=== PATIENT | female | born 1975 | race Caucasian/White ===

== ENCOUNTER 2018-08-16 13:22 | Emergency (ER) | payer SELFPAY | END 2018-08-16 17:14 | disposition left against medical advice (07) | LOC: E/R 13:22 | DX: Z53.21 Procedure and treatment not carried out due to patient leaving prior to being seen by health care provider (principal) ==

== ENCOUNTER 2018-08-17 21:52 | Emergency (ER) | payer SELFPAY ==
[2018-08-18] MEDS ORDERED: DIVA-48 PO (10:18)
== END 2018-08-17 22:45 | disposition left against medical advice (07) ==
LOC: E/R 21:52
DX: Z53.21 Procedure and treatment not carried out due to patient leaving prior to being seen by health care provider (principal)

== ENCOUNTER 2018-08-18 00:02 | Inpatient (IN) | payer OTHER ==
[2018-08-18] VITALS (11 sets, daily range): BP systolic 112–127; BP diastolic 60–74; PULSE 75–107; RESP 17–19; Ht 162.6 cm; Wt 97.7 kg
[~2018-08-18] VITALS: Ht 162.6 cm; Wt 97.7 kg
[2018-08-18] MEDS ORDERED: SOD CHLORIDE 0.9% 1,000 ML IV STA (00:43)
--- NOTE | 2018-08-18 01:09 | ERD ---
ER Documentation Chief Complaint Chief Complaint C/O LT SIDED CP RADIATING TO BACK W/ SOB ALSO C/O DIZZINESS HPI 43-year-old female who presents to the emergency room complaining of multiple episodes over the last week or 2 of intermittent chest pain and syncope. She describes pressure-like chest pain with episodes of syncope and near syncope. Last one occurred earlier today. She denies any pleuritic pain fevers chills or headache. Patient is extremely tearful and states that she cannot find her boyfriend. She states that they drove here from [place] and she is living out of her vehicle. She denies any recent drugs or alcohol. ROS All systems reviewed and are negative except as per history of present illness. Allergies Allergies: Coded Allergies: ibuprofen (Verified Allergy, Unknown, 08/18/18) FmHx Family History: No diabetes Physical Exam Vitals Vital Signs Date Temp Pulse Resp B/P (MAP) Pulse Ox O2 O2 Flow FiO2 Time Delivery Rate 08/18/18 92 16 120/71 100 Room Air 03:07 (87) 08/18/18 97.3 74 22 131/78 100 00:10 (95) Physical Exam General: Anxious Head: Normocephalic, atraumatic. Eyes: Pupils equally reactive, EOM intact ENT: Moist mucous membranes Neck: Supple, no lymphadenopathy Respiratory: Lungs clear bilaterally, no distress Cardiovascular: RRR, no murmurs, rubs, or gallops Abdominal: Soft, non-tender, non-distended, no peritoneal signs : Deferred MSK: No edema, no unilateral swelling, 5/5 strength Neurologic: Alert and oriented, moving all extremities, normal speech, no focal weakness, no cerebellar signs Skin: No rash Psych: Extremely anxious, tearful Result Diagram: 08/18/1810108/18/18 010 Results 24 hrs Laboratory Tests Test 08/18/18 01:02 08/18/18 01:11 08/18/18 01:15 08/18/18 01:20 White Blood Count 6.7 10^3/ul Red Blood Count 4.88 10^6/ul Hemoglobin 13.3 g/dl Hematocrit 41.2 % Mean Corpuscular 84.4 fl Volume Mean Corpuscular 27.3 pg Hemoglobin Mean Corpuscular 32.3 g/dl Hemoglobin Concen t Red Cell 13.3 % Distribution Width Platelet Count 277 10^3/UL Mean Platelet 10.9 fl Volume Immature 0.100 % Granulocytes % Neutrophils % 45.3 % Lymphocytes % 40.7 % Monocytes % 10.6 % Eosinophils % 3.0 % Basophils % 0.3 % Nucleated Red 0.0 /100WBC Blood Cells % Immature 0.010 10^3/ul Granulocytes # Neutrophils # 3.0 10^3/ul Lymphocytes # 2.7 10^3/ul Monocytes # 0.7 10^3/ul Eosinophils # 0.2 10^3/ul Basophils # 0.0 10^3/ul Nucleated Red 0.0 10^3/ul Blood Cells # Sodium Level 143 mmol/L Potassium Level 3.7 mmol/L Chloride Level 110 mmol/L Carbon Dioxide 27 mmol/L Level Anion Gap 6 Blood Urea 10 mg/dl Nitrogen Creatinine 0.58 mg/dl Est Glomerular > 60 mL/min Filtrat Rate mL/min Glucose Level 94 mg/dl Calcium Level 8.7 mg/dl Troponin I < 0.012 ng/ml Bedside Glucose 92 mg/dL Urine Color YELLOW Urine Clarity CLOUDY Urine pH 6.0 Urine Specific 1.023 [place] Urine Ketones NEGATIVE mg/dL Urine Nitrite NEGATIVE mg/dL Urine Bilirubin NEGATIVE mg/dL Urine 2+ mg/dL Urobilinogen Urine Leukocyte 1+ Herve/ul Esterase Urine Microscopic > 182 /HPF RBC Urine Microscopic 33 /HPF WBC Urine Squamous MODERATE /HPF Epithelial Cells Urine Bacteria FEW /HPF Urine Mucus FEW /HPF Urine Hemoglobin 3+ mg/dL Urine Glucose NEGATIVE mg/dL Urine Total 1+ mg/dl Protein POC Beta HCG, NEGATIVE Qualitative Current Medications Medications Dose Sig/Carolann Start Time Status Last (Trade) Ordered Route PRN Stop Time Admin Dose Reason Admin Sodium 1,000 ml @ Q1H STAT 08/18/18 DC 08/18/18 Chloride 1,000 mls/hr IV 00:43 01:24 08/18/18 01:42 Lorazepam 1 mg ONCE ONCE 08/18/18 DC 08/18/18 (Ativan) IV 01:30 01:24 08/18/18 01:31 Ceftriaxone 50 ml @ ONCE ONCE 08/18/18 Sodium 100 mls/hr IVPB 03:30 08/18/18 03:59 Ondansetron 4 mg ER BRIDGE 08/18/18 HCl (Zofran PRN IV 03:30 Inj) NAUSEA/VOMITI 08/19/18 03:29 NG 650 mg ER BRIDGE 08/18/18 Acetaminophen PRN PO 03:30 (Tylenol .MILD PAIN 08/19/18 03:29 Tab) 1-3 OR TEMP Procedures/MDM EKG, MONITORS, & DIAGNOSTIC IMAGING: EKG: I reviewed and interpreted a 12-lead EKG. Rhythm: Normal sinus rhythm ST Changes: No contiguous ST segment elevations T waves: No contiguous T wave inversions Impression: No evidence of acute cardiac ischemia LAB INTERPRETATION: I reviewed the laboratory testing and it shows no evidence of acute process other than urinary tract infection MEDICAL DECISION MAKING: The patient is extremely tearful. There is certainly some psychosocial issues here. However the patient is describing multiple episodes of chest pain and syncope. Patient exhibits no signs or symptoms concerning for pulmonary embolism despite her chest pain and syncope. This is potentially consistent with anxiety but I believe ACS rule out an arrhythmia rule out would be most appropriate. Given limited resources and limited follow-up inpatient hospitalization would be most appropriate. No signs of dissection or arachnoid hemorrhage. ER COURSE: * Ativan provided * Ceftriaxone provided * Patient to be admitted for further management CONSULTATION: None DISPOSITION PLAN: Telemetry admission for evaluation of syncope Accepting care team and consultations: I discussed the current laboratory data, diagnostic imaging and emergency care provided. Admitting team: Dr. Lawrence Admitting team indication: Insurance directed Departure Diagnosis: Primary Impression: Syncope Syncope type: unspecified Qualified Codes: R55 - Syncope and collapse Additional Impressions: Chest pain Chest pain type: unspecified Qualified Codes: R07.9 - Chest pain, unspecified Urinary tract infection Urinary tract infection type: acute cystitis Hematuria presence: without hematuria Qualified Codes: N30.00 - Acute cystitis without hematuria Condition: LIDIA Lorenzana MD Aug 18, 2018 01:09
[2018-08-18] MEDS ORDERED: LORAZEPAM 2 MG INJ IV ONE (01:30)
[2018-08-18] MEDS ORDERED: NACL 0.9% 3 ML SYG IV SCH (03:30)
[2018-08-18] MEDS ORDERED: BISACODYL (EC) 5 MG TAB PO PRN (03:30)
[2018-08-18] MEDS ORDERED: ONDANSETRON 4 MG INJ IV PRN ×2 (03:30)
[2018-08-18] MEDS ORDERED: DOCUSATE SODIUM 100 MG CAP PO PRN (03:30)
[2018-08-18] MEDS ORDERED: CEFTRIAXONE 1 GM/50 ML (PMX) 50 ML IVPB ONE (03:30)
[2018-08-18] MEDS ORDERED: NITROGLYCERIN (SL) 0.4 MG TAB SL PRN (03:30)
[2018-08-18] MEDS ORDERED: ACETAMINOPHEN 325 MG TAB PO PRN ×2 (03:30)
--- NOTE | 2018-08-18 09:22 | HP ---
Date/Time of Note Date/Time of Note DATE: 08/18/18 TIME: 09:14 Assessment/Plan VTE Prophylaxis Risk score (from Nsg)>0 risk: 3 SCD applied (from Nsg): Yes Pharmacological prophylaxis: NA/contraindicated Pharm contraindication: low risk/ambulating Lines/Catheters IV Catheter Type (from Nrsg): Saline Lock Assessment/Plan Hospital Course SUBJECTIVE: Lying in bed, tearful and complains of right-sided chest pain,dysuria and back/rt flank pain. OBJECTIVE: Vital signs-see below PHYSICAL EXAM: Constitutional: Well-developed, adequately built, no acute distress. Psych: Tearful Head: atraumatic, normocephalic Eyes: nl conjunctiva, nl sclera ENMT: mucosa pink and moist, nl external ears & nose Neck: non-tender, supple Respiratory: clear to auscultation, normal air movement Cardiovascular: nl pulses, regular rate and rhythm Gastrointestinal: non-tender, soft, bowel sounds active in all 4 quadrants. Musculoskeletal/extremities: +Tenderness to Right chest area on touch, +Rt flank area. nl extremities to inspection, motor strength equal bilaterally, no focal deficit. Normal pulses,no cyanosis, no edema. Neurological: Alert oriented 3,nl speech, nl strength Skin: nl turgor ASSESSMENT/PLAN:43 yo homeless female w/psych disorders/depression, seizures,here multiple complaints including /rt sided CP, rt flank/lower back pain/dysuria 1.Right sided chest pain,reproducible,most likely costochondritis - On exam, patient has quite localized and reproducible pain with palpation of chest wall, so most likley this is a musculoskeletal pain in origin. - Troponins and EKG are negative for acute AL and the duration of her syptoms are not consistent with angina or ACS - No need for provocative Stress testing given not consistent with angina - No respiratory symptoms and low wells score to suggest PE - Aspirin held given low pretest probability for cardiac etiology and allergy -cont w/ 2more sets of trops and if negative, patient can be downgraded to medical surgical floor. -In light of allergy to ibuprofen, will give alternative NSAIDs 2. Urinary tract infection -Ceftriaxone and add a urine culture to the specimen drawn from ER. 3. Drug abuse -Obtain urine toxicology. Patient admits to meth use. 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 4. Psychiatric disorder/depressive disorder -Inpatient psych consult -We will try to obtain home medication and will continue accordingly. 5. Seizure disorders -on Depakote as outpt, will resume it. -Currently stable. -seizure precautions 6. Obesity with a BMI 37.0 -Weight reduction advised. We will also obtain a lipid panel and A1c. 7.Homelessness -SW DVT prophylaxis: SCDs PUD prophylaxis: Not indicated CODE STATUS: Full code Diet: Regular diet. Rest of the management depend on hospital course. Approximately 60 m spent on this history and physical. Patient was seen in collaboration with Dr. Vivas Result Diagram: 08/18/1810108/18/18101 Results 24hrs Laboratory Tests Test 08/18/18 01:02 08/18/18 01:11 08/18/18 01:15 08/18/18 01:20 White Blood Count 6.7 Red Blood Count 4.88 Hemoglobin 13.3 Hematocrit 41.2 Mean Corpuscular 84.4 Volume Mean Corpuscular 27.3 L Hemoglobin Mean Corpuscular 32.3 Hemoglobin Concent Red Cell 13.3 Distribution Width Platelet Count 277 Mean Platelet Volume 10.9 H Immature 0.100 Granulocytes % Neutrophils % 45.3 Lymphocytes % 40.7 Monocytes % 10.6 Eosinophils % 3.0 Basophils % 0.3 Nucleated Red Blood 0.0 Cells % Immature 0.010 Granulocytes # Neutrophils # 3.0 Lymphocytes # 2.7 Monocytes # 0.7 Eosinophils # 0.2 Basophils # 0.0 Nucleated Red Blood 0.0 Cells # Sodium Level 143 Potassium Level 3.7 Chloride Level 110 Carbon Dioxide Level 27 Anion Gap 6 Blood Urea Nitrogen 10 Creatinine 0.58 Est Glomerular > 60 Filtrat Rate mL/min Glucose Level 94 Calcium Level 8.7 Troponin I < 0.012 Bedside Glucose 92 Urine Color YELLOW Urine Clarity CLOUDY A Urine pH 6.0 Urine Specific 1.023 [place] Urine Ketones NEGATIVE Urine Nitrite NEGATIVE Urine Bilirubin NEGATIVE Urine Urobilinogen 2+ H Urine Leukocyte 1+ H Esterase Urine Microscopic > 182 H RBC Urine Microscopic 33 H WBC Urine Squamous MODERATE Epithelial Cells Urine Bacteria FEW A Urine Mucus FEW A Urine Hemoglobin 3+ H Urine Glucose NEGATIVE Urine Total Protein 1+ H POC Beta HCG, NEGATIVE Qualitative HPI/ROS Admit Date/Time Admit Date/Time Aug 18, 2018 at 03:17 Hx of Present Illness This is a 43-year-old female who is also homeless with history of depressive disorders, seizure disorders who is also supposed to be on Depakote, presented to the emergency room with multiple complaints including 5-day duration of right-sided chest pain and lower back pain. Also reports dizziness. Patient's chest pain gets worsened by touching the area. She also reported mild dysuria. Patient is very tearful and she also reported to me that she got angry yesterday because of the chest pain and took "crystal meth". She also admits to daily smoking. Patient denied palpitation, shortness of breath, nausea, vomiting, abdominal pain, loss of consciousness, numbness, tingling, fever, chills, diarrhea, once the patient, abdominal pain or other constitutional symptoms. Upon presentation, initial labs grossly unremarkable. Urine analysis was strongly suggestive of UTI. Chest x-ray with no evidence of pneumonia. Vital signs stable. In ER, patient appears to be very anxious and was given a dose of IV Ativan. She was also given a dose of ceftriaxone. Patient was then admitted for further evaluation. ROS A 12 point review of system was assessed and is negative other than what is mentioned in the HPI. PMH/Family/Social Past Medical History See HPI Medications Current Medications Ondansetron HCl (Zofran Inj) 4 mg ER BRIDGE PRN IV NAUSEA/VOMITING; Start 08/18/18 at 03:30; Stop 08/19/18 at 03:29 Acetaminophen (Tylenol Tab) 650 mg ER BRIDGE PRN PO .MILD PAIN 1-3 OR TEMP; Start 08/18/18 at 03:30; Stop 08/19/18 at 03:29 IV Flush (NS 3 ml) 3 ml PER PROTOCOL IV ; Start 08/18/18 at 03:30 Ondansetron HCl (Zofran Inj) 4 mg Q6H PRN IV NAUSEA/VOMITING; Start 08/18/18 at 03:30 Nitroglycerin (Nitroglycerin (Sl Tab) 0.4 Mg) 1 tab Q5M PRN SL .CHEST PAIN; Start 08/18/18 at 03:30 Acetaminophen (Tylenol Tab) 650 mg Q6H PRN PO .PAIN 1-3 OR TEMP; Start 08/18/18 at 03:30 Docusate Sodium (Colace) 100 mg Q12H PRN PO .CONSTIPATION; Start 08/18/18 at 03:30 Bisacodyl (Dulcolax) 5 mg DAILY PRN PO .CONSTIPATION; Start 08/18/18 at 03:30 Coded Allergies: ibuprofen (Verified Allergy, Unknown, 08/18/18) Past Surgical History Social History Positive for meth abuse, tobacco use. Denied alcohol use. Smoking Status: Current every day smoker Exam/Review of Systems Vital Signs Vitals Vital Signs Date Temp Pulse Resp B/P (MAP) Pulse Ox O2 O2 Flow FiO2 Time Delivery Rate 08/18/18 89 08:00 08/18/18 98.4 18 127/73 97 07:32 (91) 08/18/18 Room Air 05:48 EDEN BARBOZA NP Aug 18, 2018 09:22
[2018-08-18] MEDS ORDERED: SOD CHLORIDE 0.9% 500 ML IV ONE (09:30)
[2018-08-18] MEDS ORDERED: DIVA-48 PO (10:18)
[2018-08-18] MEDS: DIVALPROEX (EC) 500 MG TAB PO SCH ×2 (11:01→20:30)
[2018-08-18] MEDS: HYDROCODONE/APAP (5/325) TAB PO PRN ×2 (11:02→19:10)
--- NOTE | 2018-08-18 11:14 | QN ---
Documentation Comment Patient refused psych consult. Provider notified ROSALINE BULLARD NP Aug 18, 2018 11:14
--- NOTE | 2018-08-18 19:50 | RADRPT ---
Echocardiogram Report Patient Name: Loida LESLIE ID: [id number] : 1975 (43y 2m)Study Date: 08/18/2018 7:30:50 AM Gender: FAccession #: [id number] Tech: Saud Martinez [facility] Location: [facility] Ref.Physician: LEONA BENTON Height(Cm): BSA: Weight(Kg): Quality: AdequateAccount #: Procedures: Echocardiographic Report: Transthoracic echocardiogram with complete 2D, M-Mode, and doppler examination. Indications: Chest Pain. Measurements: 2D/M Mode Doppler Measurement Value Normal Range Measurement Value Normal Range LVIDd 2D 4.1 [ 3.8 - 5.2 ] cm AV Peak Giacomo 1.6 [ 100.0 - 170.0 ] cm/sec LVIDs 2D 1.9 [ 2.2 - 3.5 ] cm AV Peak PG 10.0 [ 2.0 - 9.0 ] mmHg LVPWd 2D 1.0 [ 0.6 - 0.9 ] cm LVOT Peak Giacomo 1.3 [ 70.0 - 110.0 ] cm/sec IVSd 2D 1.1 [ 0.6 - 0.9 ] cm LVOT Peak PG 7.0 [ 2.0 - 6.0 ] mmHg AoR Diam 2D 2.3 [ 2.3 - 3.1 ] cm MV E Peak Giacomo 0.9 [ 60.0 - 130.0 ] cm/sec EDV 2D 74.7 [ 46.0 - 106.0 ] ml MV A Peak Giacomo 0.8 [ 100.0 - 120.0 ] cm/sec ESV 2D 10.4 [ 14.0 - 42.0 ] ml MV E/A 1.2 [ 0.8 - 1.5 ] ratio EF 2D 86.1 [ 54.0 - 74.0 ] percent MV Decel Time 190 [ 104 - 258 ] msec LA Dimen 2D 3.2 [ 2.7 - 3.8 ] cm Lat E` Giacomo 0.1 [ 10.0 - 15.0 ] cm/sec Lateral E/E` 8.8 [ 1.0 - 2.0 ] ratio Med E` Giacomo 0.1 cm/sec MV E/A 1.2 [ 0.8 - 1.5 ] ratio TR Peak Giacomo 2.7 [ 100.0 - 280.0 ] cm/sec TR Peak PG 29.0 mmHg RVSP 37.0 [ 10.0 - 36.0 ] mmHg RA Pressure 8.0 mmHg Findings: Left Ventricle: Normal left ventricular systolic function. Normal left ventricular cavity size. Mild concentric left ventricular hypertrophy. Ejection fraction is visually estimated at 55 %. Tissue Doppler/Mitral Doppler indices are consistent with pseudonormalization with mildly elevated left atrial pressure (Stage II diastolic dysfunction). Right Ventricle: Normal right ventricular size. Normal right ventricular systolic function. Left Atrium: The left atrium is normal in size. Right Atrium: The right atrium is normal in size. Mitral Valve: Normal appearance and function of the mitral valve with trace physiologic regurgitation. Aortic Valve: Normal appearance of the aortic valve. No significant aortic stenosis or insufficiency. Tricuspid Valve: Normal appearance of the tricuspid valve. Estimated peak PA systolic pressure 37 mmHg. There is mild tricuspid regurgitation. Pulmonic Valve: Pulmonic valve not well visualized. Pericardium: Normal pericardium with no significant pericardial effusion. Aorta: Normal aortic root. IVC: Normal size and no respiratory collapse consistent with elevated right atrial pressure. Conclusions: Normal left ventricular systolic function. Normal left ventricular cavity size. Mild concentric left ventricular hypertrophy. Ejection fraction is visually estimated at 55 %. Tissue Doppler/Mitral Doppler indices are consistent with pseudonormalization with mildly elevated left atrial pressure (Stage II diastolic dysfunction). Normal appearance and function of the mitral valve with trace physiologic regurgitation. Normal appearance of the tricuspid valve. Estimated peak PA systolic pressure 37 mmHg. There is mild tricuspid regurgitation. Electronically Signed By: Neal Loya 2018-08-18 19:49:19 PDT
[2018-08-19] VITALS (12 sets, daily range): BP systolic 110–125; BP diastolic 56–80; PULSE 70–98; RESP 17–20
[2018-08-19] MEDS: CEFTRIAXONE 1 GM/50 ML (PMX) 50 ML IVPB SCH (03:23)
[2018-08-19] MEDS ORDERED: CEFTRIAXONE 1 GM/50 ML (PMX) 50 ML IVPB ONE (03:30)
[2018-08-19] MEDS: DIVALPROEX (EC) 500 MG TAB PO SCH ×2 (09:24→21:55)
--- NOTE | 2018-08-19 13:29 | PN ---
Date/Time of Note Date/Time of Note DATE: 08/19/18 TIME: 13:26 Assessment/Plan VTE Prophylaxis Risk score (from Ns)>0 risk: 2 SCD applied (from Ns): Yes Pharmacological prophylaxis: heparin Lines/Catheters IV C[facility]ter Type [facility]from [facility] Saline Lock Assessment/Plan Problems: (1) Syncope Status: Acute Comment: Workup for the syncope has fortunately been nonrevealing. Continue observation on telemetry for the moment Qualifiers: Syncope type: unspecified Qualified Codes: R55 - Syncope and collapse (2) Grade II diastolic dysfunction Status: Chronic Comment: Noted. Attempt to get better blood pressure control and especially use of beta-blockade (3) Methamphetamine abuse Status: Chronic Comment: Patient has been counseled about the usage of the methamphetamine which is not helping her medical issues (4) Depressive disorder Status: Chronic Comment: Noted. The patient declines psychiatric consultation again (5) Chest pain Status: Acute Comment: This is noncardiac chest wall pain. We will go ahead and use nonsteroidals Qualifiers: Chest pain type: unspecified Qualified Codes: R07.9 - Chest pain, unsp ecified (6) Seizure disorder Status: Chronic Comment: Maintain anti-epilepsy medications although the crystal meth will not help this (7) Urinary tract infection Status: Acute Comment: On antibiotics pending sensitivities Qualifiers: Urinary tract infection type: acute cystitis Hematuria presence: without hematuria Qualified Codes: N30.00 - Acute cystitis without hematuria Result Diagram: 08/19/18 1049 08/19/18 1049 Results 24hrs Laboratory Tests Test 08/18/18 13:58 08/18/18 14:11 08/18/18 19:59 08/19/18 10:49 Hemoglobin A1c 4.8 Creatine Kinase 69 52 Creatine Kinase 2.5 2.3 Index Creatinine Kinase MB 1.70 1.18 (Mass) Troponin I < 0.012 < 0.012 Triglycerides Level 91 Cholesterol Level 130 LDL Cholesterol, 70 Calculated HDL Cholesterol 42 Cholesterol/HDL 3.0 Ratio Urine Opiates Screen Negative Urine Barbiturates Negative Urine Amphetamines POSITIVE Screen Urine Negative Benzodiazepines Screen Urine Cocaine Screen Negative Urine Cannabinoids Negative White Blood Count 6.3 Red Blood Count 5.29 Hemoglobin 14.5 Hematocrit 44.2 Mean Corpuscular 83.6 Volume Mean Corpuscular 27.4 L Hemoglobin Mean Corpuscular 32.8 Hemoglobin Concent Red Cell 13.5 Distribution Width Platelet Count 239 Mean Platelet Volume 11.9 H Immature 0.300 Granulocytes % Neutrophils % Segmented 59 Neutrophils % (Manual) Band Neutrophils % 1 (Manual) Lymphocytes % Lymphocytes % 27 (Manual) Reactive Lymphocytes 5 H % (Manual) Monocytes % Monocytes % (Manual) 5 Eosinophils % Eosinophils % 3 (Manual) Basophils % Nucleated Red Blood 0.0 Cells % Immature 0.020 Granulocytes # Neutrophils # Neutrophils # 3.7 (Manual) Band Neutrophils # 0.0 Lymphocytes (Manual) 1.7 Lymphocytes # Reactive Lymphocytes 0.3 H # Monocytes # Monocytes # (Manual) 0.3 Eosinophils # Basophils # Nucleated Red Blood Cells # Platelet Estimate NORMAL Sodium Level 141 Potassium Level 4.5 Chloride Level 108 Carbon Dioxide Level 25 Anion Gap 8 Blood Urea Nitrogen 11 Creatinine 0.61 Est Glomerular > 60 Filtrat Rate mL/min Glucose Level 84 Calcium Level 8.8 Total Bilirubin 0.2 Direct Bilirubin 0.00 Indirect Bilirubin 0.2 Aspartate Amino 30 Transf (AST/SGOT) Alanine 23 Aminotransferase (AL T/SGPT) Alkaline Phosphatase 67 Total Protein 6.5 Albumin 3.2 L Globulin 3.30 H Albumin/Globulin 0.96 Ratio Subjective 24 Hr Interval Summary Free Text/Dictation Patient complains that she is having chest wall pain especially at the costo sternal junction on the right and also left arm. She reports that she is disturbed by having neighbors as is keeping her from getting a nap. Constitutional: no complaints Respiratory: no complaints Cardiovascular: chest pain (Chest wall pain) Gastrointestinal: no complaints Genitourinary: no complaints Musculoskeletal: other Exam/Review of Systems Exam Vitals Vital Signs Date Temp Pulse Resp B/P (MAP) Pulse Ox O2 O2 Flow FiO2 Time Delivery Rate 08/19/18 72 12:17 08/19/18 98.1 20 121/80 99 Room Air 12:09 (94) Intake and Output 08/18/18 08/18/18 08/19/18 1515:00 23:00 07:00 IntakeIntake Total 800 ml 350 ml OutputOutput Total 600 ml BalanceBalance 200 ml 350 ml Constitutional: alert, oriented Psych: depression Neck: supple, non-tender Respiratory: clear to auscultation, normal air movement Cardiovascular: regular rate and rhythm, nl pulses, other (Reproducible chest wall pain at the right 6 costosternal junction) Gastrointestinal: soft, nl liver, spleen, non-tender Results Results 24hrs Laboratory Tests Test 08/18/18 13:58 08/18/18 14:11 08/18/18 19:59 08/19/18 10:49 Hemoglobin A1c 4.8 Creatine Kinase 69 52 Creatine Kinase 2.5 2.3 Index Creatinine Kinase MB 1.70 1.18 (Mass) Troponin I < 0.012 < 0.012 Triglycerides Level 91 Cholesterol Level 130 LDL Cholesterol, 70 Calculated HDL Cholesterol 42 Cholesterol/HDL 3.0 Ratio Urine Opiates Screen Negative Urine Barbiturates Negative Urine Amphetamines POSITIVE Screen Urine Negative Benzodiazepines Screen Urine Cocaine Screen Negative Urine Cannabinoids Negative White Blood Count 6.3 Red Blood Count 5.29 Hemoglobin 14.5 Hematocrit 44.2 Mean Corpuscular 83.6 Volume Mean Corpuscular 27.4 L Hemoglobin Mean Corpuscular 32.8 Hemoglobin Concent Red Cell 13.5 Distribution Width Platelet Count 239 Mean Platelet Volume 11.9 H Immature 0.300 Granulocytes % Neutrophils % Segmented 59 Neutrophils % (Manual) Band Neutrophils % 1 (Manual) Lymphocytes % Lymphocytes % 27 (Manual) Reactive Lymphocytes 5 H % (Manual) Monocytes % Monocytes % (Manual) 5 Eosinophils % Eosinophils % 3 (Manual) Basophils % Nucleated Red Blood 0.0 Cells % Immature 0.020 Granulocytes # Neutrophils # Neutrophils # 3.7 (Manual) Band Neutrophils # 0.0 Lymphocytes (Manual) 1.7 Lymphocytes # Reactive Lymphocytes 0.3 H # Monocytes # Monocytes # (Manual) 0.3 Eosinophils # Basophils # Nucleated Red Blood Cells # Platelet Estimate NORMAL Sodium Level 141 Potassium Level 4.5 Chloride Level 108 Carbon Dioxide Level 25 Anion Gap 8 Blood Urea Nitrogen 11 Creatinine 0.61 Est Glomerular > 60 Filtrat Rate mL/min Glucose Level 84 Calcium Level 8.8 Total Bilirubin 0.2 Direct Bilirubin 0.00 Indirect Bilirubin 0.2 Aspartate Amino 30 Transf (AST/SGOT) Alanine 23 Aminotransferase (AL T/SGPT) Alkaline Phosphatase 67 Total Protein 6.5 Albumin 3.2 L Globulin 3.30 H Albumin/Globulin 0.96 Ratio Medications Medication Current Medications IV Flush (NS 3 ml) 3 ml PER PROTOCOL IV ; Start 08/18/18 at 03:30 Ondansetron HCl (Zofran Inj) 4 mg Q6H PRN IV NAUSEA/VOMITING; Start 08/18/18 at 03:30 Nitroglycerin (Nitroglycerin (Sl Tab) 0.4 Mg) 1 tab Q5M PRN SL .CHEST PAIN; Start 08/18/18 at 03:30 Acetaminophen (Tylenol Tab) 650 mg Q6H PRN PO .PAIN 1-3 OR TEMP; Start 08/18/18 at 03:30 Docusate Sodium (Colace) 100 mg Q12H PRN PO .CONSTIPATION; Start 08/18/18 at 03:30 Bisacodyl (Dulcolax) 5 mg DAILY PRN PO .CONSTIPATION; Start 08/18/18 at 03:30 Ceftriaxone Sodium 50 ml @ 100 mls/hr Q24H IVPB Last administered on 08/19/18at 03:23; Admin Dose 100 MLS/HR; Start 08/19/18 at 03:00 Acetaminophen/ Hydrocodone Bitart ([place] (5/325)) 1 tab Q4H PRN PO MODERATE PAIN LEVEL 4-6 Last administered on 08/18/18at 19:10; Admin Dose 1 TAB; Start 08/18/18 at 09:30 Divalproex Sodium (Depakote) 500 mg BID PO Last administered on 08/19/18at 09:24; Admin Dose 500 MG; Start 08/18/18 at 10:30 ADDIS SHEETS MD Aug 19, 2018 13:29
[2018-08-19] MEDS: CELECOXIB 100 MG CAP PO SCH ×2 (14:58→21:55)
[2018-08-20] VITALS (12 sets, daily range): BP systolic 110–150; BP diastolic 57–95; PULSE 66–118; RESP 18–20
[2018-08-20] MEDS: CEFTRIAXONE 1 GM/50 ML (PMX) 50 ML IVPB SCH (02:16)
[2018-08-20] MEDS: DIVALPROEX (EC) 500 MG TAB PO SCH ×2 (09:05→20:46)
[2018-08-20] MEDS: CELECOXIB 100 MG CAP PO SCH ×2 (09:05→20:46)
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
[2018-08-20] MEDS ORDERED: AZITHROMYCIN 250 MG TAB PO ONE (12:00)
[2018-08-20] MEDS ORDERED: ONDANSETRON 4 MG TAB PO PRN (12:00)
[2018-08-20] MEDS ORDERED: FOSFOMYCIN 3 GM PACKET PO ONE (12:00)
[2018-08-20] MEDS: HYDROCODONE/APAP (5/325) TAB PO PRN (17:06)
[2018-08-20] MEDS ORDERED: PHENOL 1.4% SOLN 180 ML BTL MT PRN (19:30)
[2018-08-21 01:34] VITALS: BP 107/59; PULSE 77; RESP 18
[2018-08-21 07:31] VITALS: BP 126/76; PULSE 96; RESP 16
--- NOTE | 2018-08-21 08:50 | PDOCDIS ---
Discharge Instructions CONDITION [id number] Patient Condition: [id number] Stable HOME CARE INSTRUCTIONS: [id number] Diet Instructions: [id number] Regular FOLLOW UP/APPOINTMENTS Follow-up Plan Follow-up with your primary care physician in 1 week. You have been counseled on cessation of substance abuse. EDEN BARBOZA NP Aug 21, 2018 08:50
[2018-08-21] MEDS ORDERED: CELE100C PO (08:51)
--- NOTE | 2018-08-21 08:56 | DS ---
Date/Time of Note Date/Time of Note DATE: 08/21/18 TIME: 08:54 Discharge Summary Admission/Discharge Info Admit Date/Time Aug 18, 2018 at 09:04 Discharge Date/Time Discharge Diagnosis 1.Right sided chest pain,reproducible,most likely costochondritis. Stable 2. Status post urinary tract infection 3. Meth abuse 4. Psychiatric disorder/depressive disorder 5. Seizure disorders 6. Obesity with a BMI 37.0 7.Homelessness 8. Diastolic dysfunction Patient Condition: Stable Procedures 08/18/2018. 2D echocardiogram. Conclusions: Normal left ventricular systolic function. Normal left ventricular cavity size. Mild concentric left ventricular hypertrophy. Ejection fraction is visually estimated at 55 %. Tissue Doppler/Mitral Doppler indices are consistent with pseudonormalization with mildly elevated left atrial pressure (Stage II diastolic dysfunction). Normal appearance and function of the mitral valve with trace physiologic regurgitation. Normal appearance of the tricuspid valve. Estimated peak PA systolic pressure 37 mmHg. There is mild tricuspid regurgitation. Electronically Signed By: Neal Loya 2018-08-18 19:49:19 PDT Hx of Present Illness This is a 43-year-old female who is also homeless with history of depressive disorders, seizure disorders who is also supposed to be on Depakote, presented to the emergency room with multiple complaints including 5-day duration of right-sided chest pain and lower back pain. Also reports dizziness. Patient's chest pain gets worsened by touching the area. She also reported mild dysuria. Patient is very tearful and she also reported to me that she got angry yesterday because of the chest pain and took "crystal meth". She also admits to daily smoking. Patient denied palpitation, shortness of breath, nausea, vomiting, abdominal pain, loss of consciousness, numbness, tingling, fever, chills, diarrhea, once the patient, abdominal pain or other constitutional symptoms. Upon presentation, initial labs grossly unremarkable. Urine analysis was strongly suggestive of UTI. Chest x-ray with no evidence of pneumonia. Vital signs stable. In ER, patient appears to be very anxious and was given a dose of IV Ativan. She was also given a dose of ceftriaxone. Patient was then admitted for further evaluation. Hospital Course 43 yo homeless female w/psych disorders/depression, abuse seizures,here multiple complaints including /rt sided CP, rt flank/lower back pain/dysuria. On exam, patient has quite localized and reproducible pain with palpation of chest wall, so most likley this is a musculoskeletal pain in origin.Troponins and EKG are negative for acute SD and the duration of her syptoms are not consistent with angina or ACS. No need for provocative Stress testing given not consistent with angina. No respiratory symptoms and low wells score to suggest PE. Aspirin held given low pretest probability for cardiac etiology and allergy. Echo with stage II diastolic dysfunction with preserved ejection fraction. No valvular disorders. Patient was treated with celecoxib for musculoskeletal pain with improvement in her symptoms. She was also counseled on cessation of meth abuse and had social work faculty member follow-up. She refused homelessness resources. The patient was also treated for urinary tract infection with complete resolution of her symptoms. At this time, no further inpatient workup indicated and patient is medically stable for discharge. we also try to obtain official psych eval as patient appeared to be tearful with multiple complaints throughout the hospitalization. She refused any suicidal thoughts. However, patient refused psych evaluation as such it was not done. Approximately 60 minutes was spent on coordinating the discharge on this patient. Patient was seen in collaboration with Dr. Mercado. Home Meds Active Scripts Celecoxib* (Celebrex*) 100 Mg Capsule, 100 MG PO BID, #30 CAP Prov:EDEN BARBOZA NP 08/21/18 Reported Medications Divalproex Sodium* (Depakote*) 500 Mg Tablet.dr 500 MG PO BID, #120 TAB 08/18/18 Follow-up Plan Follow-up with your primary care physician in 1 week. You have been counseled on cessation of substance abuse. Primary Care Provider Care Physician No Primary EDEN BARBOZA NP Aug 21, 2018 08:56
[2018-08-21] MEDS: DIVALPROEX (EC) 500 MG TAB PO SCH (09:00)
[2018-08-21] MEDS: CELECOXIB 100 MG CAP PO SCH (09:00)
== END 2018-08-21 10:25 | disposition home or self-care (01) | DRG 206 ==
LOC: E/R 00:02 → 6WM 03:17 → OBSVTOIN 09:04 → 2NE 08-20 23:17
PROVIDERS: ADMIT Family Medicine; ATTEND Family Medicine
DX: M94.0 Chondrocostal junction syndrome [Tietze] (principal); N39.0 Urinary tract infection, site not specified; I50.30 Unspecified diastolic (congestive) heart failure; N30.00 Acute cystitis without hematuria; R55 Syncope and collapse; B96.89 Other specified bacterial agents as the cause of diseases classified elsewhere; G40.909 Epilepsy, unspecified, not intractable, without status epilepticus; E66.9 Obesity, unspecified; Z68.37 Body mass index [BMI] 37.0-37.9, adult; Z59.0 Homelessness; F15.10 Other stimulant abuse, uncomplicated; F32.9 Major depressive disorder, single episode, unspecified
CPT/HCPCS: 36415; 71045; 80048; 80053; 80061; 80307; 81001; 81025; 82550; 82553; 82962; 83036; 84484; 85025; 87086; 93005; 93306; 93880; 96374; 97161; G0378; J0696; J2060; J7030; J7040

== ENCOUNTER → 2018-10-02 20:40 | Emergency (ER) | payer SELFPAY ==
[~2018-10-02 20:40] MED LIST: CELE100C PO; DIVA-48 PO
== END | disposition left against medical advice (07) ==
LOC: FTE 20:40
DX: Z53.21 Procedure and treatment not carried out due to patient leaving prior to being seen by health care provider (principal)

== ENCOUNTER 2018-10-10 11:35 | Emergency (ER) | payer OTHER ==
[~2018-10-10] VITALS: Wt 90.0 kg
[2018-10-10 11:40] VITALS: BP 149/72; PULSE 98; RESP 18
[2018-10-10] MEDS ORDERED: ALBUTEROL 0.083% (NEB) 2.5 MG/3 ML AMP HHN STA (12:38)
[2018-10-10] MEDS ORDERED: predniSONE 20 MG TAB PO ONE (13:30)
[2018-10-10] MEDS ORDERED: CEPHALEXIN 500 MG CAP PO ONE (13:30)
[2018-10-10] MEDS ORDERED: PHEN118L PO (13:33)
[2018-10-10] MEDS ORDERED: ALBU18HF INHALATION (13:33)
[2018-10-10] MEDS ORDERED: CEPH-443 PO (13:33)
[2018-10-10] MEDS ORDERED: PRED20TA PO (13:33)
--- NOTE | 2018-10-10 13:36 | ERD ---
ER Documentation Chief Complaint Chief Complaint FLU X 2 WEEKS,BODY ACHES, COUGH,CHILLS HPI 43-year-old female presents with cough for last 2 days. She also has body aches. She has hematuria as well. Patient has a history of recent admission for complications related to methamphetamine use, UTI, syncope. Has a history of asthma but denies use of an inhaler currently. ROS All systems reviewed and are negative except as per history of present illness. Medications Home Meds Active Scripts Albuterol Sulfate* (Ventolin HFA*) 18 Gm Hfa.aer.ad, 2 PUFF INHALATION Q4H, #1 INHALER Prov:MARIA EELNA CALVERT MD 10/10/18 Cephalexin* (Keflex*) 500 Mg Capsule, 500 MG PO QID for 5 Days, CAP Prov:MARIA ELENA CALVERT MD 10/10/18 Prednisone* (Prednisone*) 20 Mg Tab, 40 MG PO DAILY for 4 Days, TAB Start October 11, 2018 Prov:MARIA ELENA CALVERT MD 10/10/18 Phenylephrine/Diphenhydramine (DIMETAPP COLD & CONGEST LIQUID) 118 Ml Liquid, 10 ML PO Q4H PRN for COUGH, #4 OZ Prov:MARIA ELENA CALVERT MD 10/10/18 Celecoxib* (Celebrex*) 100 Mg Capsule, 100 MG PO BID, #30 CAP Prov:EDEN BARBOZA NP 08/21/18 Reported Medications Divalproex Sodium* (Depakote*) 500 Mg Tablet.dr, 500 MG PO BID, #120 TAB 08/18/18 Allergies Allergies: Coded Allergies: ibuprofen (Verified Allergy, Unknown, 08/18/18) PMhx/Soc Hx Psychiatric Problems: Yes (DEPRESSION,ANXIETY) Hx Miscellaneous Medical Probl: Yes (DEPRESSIVE DISORDER, SEIZURE DISORDER , CHEST PAIN , LBP , DIZZINESS ) Hx Alcohol Use: No Hx Substance Use: Yes (METH) Hx Tobacco Use: Yes FmHx Family History: No diabetes, No coronary disease, No other Physical Exam Vitals Vital Signs Date Temp Pulse Resp B/P (MAP) Pulse Ox O2 O2 Flow FiO2 Time Delivery Rate 10/10/18 89 18 96 21 13:00 10/10/18 97.1 98 18 149/72 99 11:40 (97) Physical Exam Const: No acute distress. Anxious. Head: Atraumatic Eyes: Normal Conjunctiva ENT: Normal External Ears, Nose and Mouth. Neck: Full range of motion. No meningismus. Resp: Clear to auscultation bilaterally Cardio: Regular rate and rhythm, no murmurs Abd: Soft, suprapubic tenderness. No tenderness McBurney's point no Peña sign., non distended. Normal bowel sounds Skin: No petechiae or rashes Back: No midline or flank tenderness Ext: No cyanosis, or edema Neur: Awake and alert Psych: Normal Mood and Affect Results 24 hrs Laboratory Tests Test 10/10/18 12:49 10/10/18 12:50 POC Beta HCG, Qualitative NEGATIVE Urine Color RED Urine Clarity CLOUDY Urine pH 6.0 Urine Specific Wenham 1.019 Urine Ketones NEGATIVE mg/dL Urine Nitrite POSITIVE mg/dL Urine Bilirubin NEGATIVE mg/dL Urine Urobilinogen NEGATIVE mg/dL Urine Leukocyte Esterase 2+ Herve/ul Urine Microscopic RBC 26 /HPF Urine Microscopic WBC 99 /HPF Urine Squamous Epithelial Cells MANY /HPF Urine Bacteria FEW /HPF Urine Mucus FEW /HPF Urine Hemoglobin 3+ mg/dL Urine Glucose NEGATIVE mg/dL Urine Total Protein 2+ mg/dl Current Medications Medications Dose Sig/Carolann Start Time Status Last (Trade) Ordered Route PRN Stop Time Admin Dose Reason Admin Albuterol 5 mg ONCE STAT 10/10/18 DC 10/10/18 (Proventil HHN 12:38 12:59 0.083% (Neb)) 10/10/18 12:40 Cephalexin 500 mg ONCE ONCE 10/10/18 DC (Keflex) PO 13:30 10/10/18 13:31 Prednisone 60 mg ONCE ONCE 10/10/18 DC (Prednisone) PO 13:30 10/10/18 13:31 Procedures/MDM Patient presents with hematuria possible vaginal bleeding. hCG negative. She is uncertain of which. She also has cough and body aches for the last few days. She is a difficult historian but has no abnormalities on vital signs. She does not meet SIRS criteria. She has no measured fevers. She was given albuterol treatment, prednisone 60 mg by mouth. Urine shows red blood cells, white blood cells, leukocyte esterase and nitrites. Patient was given Keflex 500 mg by mouth. Patient states that she has had vaginal bleeding for last 2 weeks although it may be hematuria. CBC and basic metabolic panel ordered but patient refused blood draw. Patient was sleeping comfortably after observation treatment without signs of hypoxemia, respiratory distress. She had residual coarse breath sounds. Patient will be treated with a short course of prednisone, Ventolin, Keflex for UTI, recommendations for primary care follow-up and return precautions. Patient is is no signs or symptoms of acute abdomen. She has no signs of pallor to suggest anemia the patient is advised to recheck for any worsening symptoms with primary doctor. Departure Diagnosis: Primary Impression: UTI (urinary tract infection) Urinary tract infection type: site unspecified Hematuria presence: without hematuria Qualified Codes: N39.0 - Urinary tract infection, site not specified Additional Impression: Upper respiratory infection URI type: unspecified URI Qualified Codes: J06.9 - Acute upper respiratory infection, unspecified Condition: Stable Patient Instructions: Understanding Urinary Tract Infections (UTIs), Bronchitis With Wheezing (Adult) Additional Instructions: There is signs of urinary tract infection and we will treat for this. Likely upper respiratory infection as well. Recheck for any worsening symptoms with primary care doctor. MARIA ELENA CALVERT MD October 10, 2018 13:36
== END 2018-10-10 14:40 | disposition home or self-care (01) ==
LOC: FTE 11:35
DX: N39.0 Urinary tract infection, site not specified (principal); J45.909 Unspecified asthma, uncomplicated; J06.9 Acute upper respiratory infection, unspecified; Z87.891 Personal history of nicotine dependence
CPT/HCPCS: 81001; 81025; 94664; J7512; Z7502; Z7610

== ENCOUNTER 2018-10-23 23:17 | Emergency (ER) | payer SELFPAY ==
[~2018-10-23] VITALS: Wt 97.3 kg
[~2018-10-23 23:17] MED LIST changes: +ALBU18HF INHALATION; +CEPH-443 PO; +PHEN118L PO; +PRED20TA PO
[2018-10-23 23:22] VITALS: BP 141/61; PULSE 94; RESP 18
== END 2018-10-24 00:25 | disposition left against medical advice (07) ==
LOC: FTE 23:17
DX: Z53.21 Procedure and treatment not carried out due to patient leaving prior to being seen by health care provider (principal)

== ENCOUNTER 2018-11-05 05:55 | Emergency (ER) | payer OTHER ==
[~2018-11-05] VITALS: Ht 165.1 cm; Wt 99.2 kg
[2018-11-05 05:57] VITALS: BP 143/80; PULSE 114; RESP 18; Ht 165.1 cm; Wt 99.2 kg
[2018-11-05] MEDS ORDERED: ACETAMINOPHEN 500 MG TAB PO STA (06:16)
[2018-11-05] MEDS ORDERED: ACET500C5 PO (06:18)
[2018-11-05] MEDS ORDERED: SULF1TAB31 PO (06:18)
[2018-11-05] MEDS ORDERED: CEPH-443 PO (06:18)
--- NOTE | 2018-11-05 06:23 | ERD ---
ER Documentation Chief Complaint Chief Complaint BUG BITE ON R CALF X'S 2 DAYS HPI This is a 43-year-old female with a history of asthma and epilepsy who presents to ED with complaints of bug bite on right calf x2 days. Patient states that she felt a bug bite her on her right calf yesterday and she started itching it. Patient states that after itching repetitivly redness, pain and warmth around this area. Denies fevers, chills, chest pain, shortness of breath, trouble breathing. History of using methamphetamine but states that she quit. Denies history of DVT and PE. ROS All systems reviewed and are negative except as per history of present illness. Medications Home Meds Active Scripts Sulfamethoxazole/Trimethoprim* (Bactrim Ds* Tablet) 1 Each Tablet, 1 TAB PO BID, #14 TAB Prov:YVETTE ALANIZ PA-C 11/05/18 Cephalexin* (Keflex*) 500 Mg Capsule, 500 MG PO QID for 7 Days, CAP Prov:YVETTE ALANIZ PA-C 11/05/18 Acetaminophen* (Tylophen*) 500 Mg Capsule, 1 CAP PO Q6H PRN for PAIN AND OR ELEVATED TEMP, #20 CAP Prov:YVETTE ALANIZ PA-C 11/05/18 Albuterol Sulfate* (Ventolin HFA*) 18 Gm Hfa.aer.ad, 2 PUFF INHALATION Q4H, #1 INHALER Prov:MARIA ELENA CALVERT MD 10/10/18 Cephalexin* (Keflex*) 500 Mg Capsule, 500 MG PO QID for 5 Days, CAP Prov:MARIA ELENA CALVERT MD 10/10/18 Prednisone* (Prednisone*) 20 Mg Tab, 40 MG PO DAILY for 4 Days, TAB Start October 11, 2018 Prov:MARIA ELENA CALVERT MD 10/10/18 Phenylephrine/Diphenhydramine (DIMETAPP COLD & CONGEST LIQUID) 118 Ml Liquid, 10 ML PO Q4H PRN for COUGH, #4 OZ Prov:MARIA ELENA CALVERT MD 10/10/18 Celecoxib* (Celebrex*) 100 Mg Capsule, 100 MG PO BID, #30 CAP Prov:EDEN BARBOZA NP 08/21/18 Reported Medications Divalproex Sodium* (Depakote*) 500 Mg Tablet.dr, 500 MG PO BID, #120 TAB 08/18/18 Allergies Allergies: Coded Allergies: ibuprofen (Verified Allergy, Unknown, 08/18/18) PMhx/Soc Hx Neurological Disorder: Yes (SEIZURE DISORDER) Hx Cardiac Disorders: Yes (CP,HYPOTENSION) Hx Psychiatric Problems: Yes (DEPRESSION,ANXIETY) Hx Miscellaneous Medical Probl: Yes (DIZZINESS) Hx Alcohol Use: No Hx Substance Use: Yes (METH) Hx Tobacco Use: Yes Smoking Status: Current every day smoker Physical Exam Vitals Physical Exam Const: No acute distress Head: Atraumatic Eyes: Normal Conjunctiva ENT: Normal External Ears, Nose and Mouth. Neck: Full range of motion. No meningismus. Resp: Clear to auscultation bilaterally Cardio: Regular rate and rhythm, no murmurs Skin: There is an area of increased redness, warmth and tenderness to palpation surrounding what appears to be a bug bite on patient's right medial calf, no lymphatic streaking Ext: No cyanosis, or edema, Homans sign negative Neur: Awake and alert Psych: Normal Mood and Affect Results 24 hrs Current Medications Medications Dose Sig/Carolann Start Time Status Last (Trade) Ordered Route PRN Stop Time Admin Dose Reason Admin 500 mg ONCE STAT 11/05/18 DC 11/05/18 Acetaminophen PO 06:16 11/05/18 06:19 (Tylenol 06:17 Tab) Procedures/MDM ER COURSE: The patient was stable throughout ED course. I kept the patient and/or family informed of laboratory and diagnostic imaging results throughout the emergency room course. The patient was promptly evaluated and a treatment plan was devised based on H&P and other data. This plan was discussed with the patient who agreed and had no further questions or concerns prior to discharge. MEDICAL DECISION MAKIN-year-old female presents ED with cellulitis of the right medial calf. This is likely cellutlitis that developed from a insect bite. There is no lymphatic streaking. There is no fluctuant mass or abscess to be drained. Low suspicion for DVT, deep space infection, compartment syndrome, abscess, sepsis, neurovascular injury, tendon injury. Patient is afebrile, nontachypneic. Patient's vitals are stable and pt can be managed with close outpatient follow- up. Advised patient follow-up with primary care in the next 48 hours. Advised to return to ED with any worsening symptoms. Discussed case with overseeing physician dr. kirk and he agrees with plan. DISPOSITION PLAN: We discussed follow up with the patient's primary care doctor within 24 to 48 hours. Patient counseled regarding my diagnostic impression and care plan. Prior to discharge all questions answered. Pt agrees with treatment plan and understands strict return precautions. Precautionary instructions provided including instructions to return to the ER if not improving or for any worsening or changing symptoms or concerns. ExitCare instructions provided. Prior to discharge, patients vital signs have been reviewed SPECIALIST FOLLOW UP RECOMMENDED: None Patient has been advised to follow up with primary care in 1-2 days. Disclaimer: Inadvertent spelling and grammatical errors are likely due to EHR/dictation software use and do not reflect on the overall quality of patient care. Also, please note that the electronic time recorded on this note does not necessarily reflect the actual time of the patient encounter. Blood Pressure Assessment: Patient's blood pressure was elevated (>120/80) but appears stable without evidence of hypertension emergency or urgency. The patient was counseled about the risks of hypertension and urged to pursue outpatient monitoring and therapy within a week with their primary care physician. Departure Diagnosis: Primary Impression: Cellulitis of right lower leg Condition: Stable Patient Instructions: Cellulitis Referrals: [facility] YOU HAVE RECEIVED A MEDICAL SCREENING EXAM AND THE RESULTS INDICATE THAT YOU DO NOT HAVE A CONDITION THAT REQUIRES URGENT TREATMENT IN THE EMERGENCY DEPARTMENT. FURTHER EVALUATION AND TREATMENT OF YOUR CONDITION CAN WAIT UNTIL YOU ARE SEEN IN YOUR DOCTORS OFFICE WITHIN THE NEXT 1-2 DAYS. IT IS YOUR RESPONSIBILITY TO MAKE AN APPOINTMENT FOR FOLOW-UP CARE. IF YOU HAVE A PRIMARY DOCTOR --you should call your primary doctor and schedule an appointment IF YOU DO NOT HAVE A PRIMARY DOCTOR YOU CAN CALL OUR PHYSICIAN REFERRAL HOTLINE AT IF YOU CAN NOT AFFORD TO SEE A PHYSICIAN YOU CAN CHOSE FROM THE FOLLOWING [facility] [address] [place] [address] [facility]. [facility] [address] [facility] [address] [facility] [address] [facility] [address] Additional Instructions: Patient advised to return to the ED immediately for new or worsening symptoms. Patient advised to follow up with primary care provider in the next 24-48 hours. Patient verbalized understanding and agrees with treatment plan and course of action. If patient has no primary care they may follow up with one of the community clinics listed on the following page or one of the options listed below [facility] [address] [place] [id number] or [facility] [address] [place] [address] or [facility] [address] [place] [address] YVETTE ALANIZ PA-C Nov 05, 2018 06:23 ARTURO KIRK MD Nov 10, 2018 06:03
== END 2018-11-05 06:38 | disposition home or self-care (01) ==
LOC: FTE 05:55
DX: S80.861A Insect bite (nonvenomous), right lower leg, initial encounter (principal); J45.909 Unspecified asthma, uncomplicated; F17.210 Nicotine dependence, cigarettes, uncomplicated; L03.115 Cellulitis of right lower limb; W57.XXXA Bitten or stung by nonvenomous insect and other nonvenomous arthropods, initial encounter; Y92.9 Unspecified place or not applicable
CPT/HCPCS: Z7502; Z7610; 99283

== ENCOUNTER 2018-11-12 20:29 | Emergency (ER) | payer OTHER ==
[~2018-11-12] VITALS: Ht 160 cm; Wt 99.0 kg
[~2018-11-12 20:29] MED LIST changes: +ACET500C5 PO; +SULF1TAB31 PO
[2018-11-12 20:39] VITALS: Ht 160 cm; Wt 99.0 kg
[2018-11-12] MEDS ORDERED: LIDOCAINE 1% (MPF) 5 ML VIAL INFIL ONE (22:30)
--- NOTE | 2018-11-12 23:11 | ERD ---
ER Documentation Chief Complaint Chief Complaint RIGHT CALF LUMP FROM POSS BUG BITE, NO DRAINAGE HPI 43-year-old female with past medical history of seizure and asthma presents for right calf lump x2 weeks. Patient presents to the ER about a week ago was given some antibiotics for the same issue. She states that the lump on her right calf is persistent. She states that she has subjective fever. She also states that she has pain in the area and is noted to be 10 out of 10. The pain is noted to be a dull sensation. Pain is worse with movement. No other modifying factors, no other treatment tried. ROS All systems reviewed and are negative except as per history of present illness. Medications Home Meds Active Scripts Acetaminophen* (Tylenol*) 325 Mg Tablet, 2 TAB PO Q6 PRN for PAIN AND OR ELEVATED TEMP, #20 TAB Prov:MARIANA BUNCH MD 11/13/18 Cephalexin* (Keflex*) 500 Mg Capsule, 500 MG PO BID for 5 Days, CAP Prov:MARIANA BUNCH MD 11/13/18 Sulfamethoxazole/Trimethoprim* (Bactrim Ds* Tablet) 1 Each Tablet, 1 TAB PO BID, #14 TAB Prov:MARIANA BUNCH MD 11/13/18 Sulfamethoxazole/Trimethoprim* (Bactrim Ds* Tablet) 1 Each Tablet, 1 TAB PO BID, #14 TAB Prov:YVETTE ALANIZ PA-C 11/05/18 Cephalexin* (Keflex*) 500 Mg Capsule, 500 MG PO QID for 7 Days, CAP Prov:YVETTE ALANIZ PA-C 11/05/18 Acetaminophen* (Tylophen*) 500 Mg Capsule, 1 CAP PO Q6H PRN for PAIN AND OR ELEVATED TEMP, #20 CAP Prov:YVETTE ALANIZ PA-C 11/05/18 Albuterol Sulfate* (Ventolin HFA*) 18 Gm Hfa.aer.ad, 2 PUFF INHALATION Q4H, #1 INHALER Prov:MARIA ELENA CALVERT MD 10/10/18 Cephalexin* (Keflex*) 500 Mg Capsule, 500 MG PO QID for 5 Days, CAP Prov:MARIA ELENA CALVERT MD 10/10/18 Prednisone* (Prednisone*) 20 Mg Tab, 40 MG PO DAILY for 4 Days, TAB Start October 11, 2018 Prov:MARIA ELENA CALVERT MD 10/10/18 Phenylephrine/Diphenhydramine (DIMETAPP COLD & CONGEST LIQUID) 118 Ml Liquid, 10 ML PO Q4H PRN for COUGH, #4 OZ Prov:MARIA ELENA CALVERT MD 10/10/18 Celecoxib* (Celebrex*) 100 Mg Capsule, 100 MG PO BID, #30 CAP Prov:EDEN BARBOZA NP 08/21/18 Reported Medications Divalproex Sodium* (Depakote*) 500 Mg Tablet.dr, 500 MG PO BID, #120 TAB 08/18/18 Allergies Allergies: Coded Allergies: ibuprofen (Verified Allergy, Unknown, 08/18/18) PMhx/Soc Hx Neurological Disorder: Yes (SEIZURE DISORDER) Hx Cardiac Disorders: Yes (CP,HYPOTENSION) Hx Psychiatric Problems: Yes (DEPRESSION,ANXIETY) Hx Miscellaneous Medical Probl: Yes (DIZZINESS) Hx Alcohol Use: No Hx Substance Use: Yes (METH) Hx Tobacco Use: Yes Smoking Status: Current every day smoker FmHx Family History: No coronary disease Physical Exam Vitals Temperature 97.4, pulse 86, respiration 18, blood pressure 137/80, O2 saturation 100% on room air Physical Exam Const: No acute distress Resp: Clear to auscultation bilaterally Cardio: Regular rate and rhythm, no murmurs Abd: Soft, non tender, non distended. Normal bowel sounds Skin: right lower extremity posterior with nodule noted about 2cm with induration, warmth, mild fluctuance Back: No midline or flank tenderness Ext: No cyanosis, or edema Neur: Awake and alert Psych: Normal Mood and Affect Results 24 hrs Laboratory Tests Test 11/12/18 22:02 Bedside Urine pH (LAB) 6.0 Bedside Urine Protein (LAB) Negative Bedside Urine Glucose (UA) Negative Bedside Urine Ketones (LAB) Negative Bedside Urine Blood Negative Bedside Urine Nitrite (LAB) Negative Bedside Urine Leukocyte Esterase (L 1+ POC Beta HCG, Qualitative NEGATIVE Current Medications Medications Dose Sig/Carolann Start Time Status Last (Trade) Ordered Route PRN Stop Time Admin Dose Reason Admin Lidocaine 5 ml ONCE ONCE 11/12/18 DC (Xylocaine INFIL 22:30 1% (Mpf)) 11/12/18 22:31 Procedures/MDM Medical Decision Making: Differential diagnosis includes but not limited to abscess, cellulitis, dermati tis Patient appeared well on physical exam. Examination consistent with an abscess ED course: Patient was given . Symptoms improved with treatment. Plan was to do incision and drainage of the abscess. Incision and drainage kit was set up and lidocaine was ordered however patient eloped before treatment could be given or discharge instruction or prescriptions given. Disclaimer: Inadvertent spelling and grammatical errors are likely due to EHR/dictation software use and do not reflect on the overall quality of patient care. Also, please note that the electronic time recorded on this note does not necessarily reflect the actual time of the patient encounter. Departure Diagnosis: Primary Impression: Abscess Condition: Stable PILLO SCHAEFFER DO Nov 12, 2018 23:11
[2018-11-13] MEDS ORDERED: SULF1TAB31 PO (13:07)
[2018-11-13] MEDS ORDERED: CEPH-443 PO (13:08)
[2018-11-13] MEDS ORDERED: ACET325T33 PO (13:09)
== END 2018-11-12 23:20 | disposition left against medical advice (07) ==
LOC: FTE 20:29
DX: L02.415 Cutaneous abscess of right lower limb (principal); F17.210 Nicotine dependence, cigarettes, uncomplicated; J45.909 Unspecified asthma, uncomplicated; R10.2 Pelvic and perineal pain
CPT/HCPCS: 81003; 81025; Z7502; Z7610; 99282

== ENCOUNTER 2018-11-13 11:24 | Emergency (ER) | payer OTHER ==
[~2018-11-13] VITALS: Ht 167.6 cm; Wt 99.2 kg
[2018-11-13 11:49] VITALS: Ht 167.6 cm; Wt 99.2 kg
[2018-11-13] MEDS ORDERED: LIDOCAINE 1% (MDV) 10 ML INJ INJ STA (12:17)
[2018-11-13] MEDS ORDERED: ACETAMINOPHEN 650MG/20.3ML CUP PO STA (12:17)
--- NOTE | 2018-11-13 12:21 | ERD ---
ER Documentation Chief Complaint Chief Complaint lump, possible abscess right calf x2wks HPI 43-year-old female, with medical history of IV drug use, according to the patient last time was more than 2 months ago, presents to the emergency department, complaining of 2 weeks with worsening of painful lump in the right calf for which she has been taking antibiotics without improvement of the symptoms. She denies fever or chills, no shortness of breath, no cough, no rashes. ROS All systems reviewed and are negative except as per history of present illness. Medications Home Meds Active Scripts Acetaminophen* (Tylenol*) 325 Mg Tablet, 2 TAB PO Q6 PRN for PAIN AND OR ELEVATED TEMP, #20 TAB Prov:MARIANA BUNCH MD 11/13/18 Cephalexin* (Keflex*) 500 Mg Capsule, 500 MG PO BID for 5 Days, CAP Prov:MARIANA BUNCH MD 11/13/18 Sulfamethoxazole/Trimethoprim* (Bactrim Ds* Tablet) 1 Each Tablet, 1 TAB PO BID, #14 TAB Prov:MARIANA BUNCH MD 11/13/18 Sulfamethoxazole/Trimethoprim* (Bactrim Ds* Tablet) 1 Each Tablet, 1 TAB PO BID, #14 TAB Prov:YVETTE ALANIZ PA-C 11/05/18 Cephalexin* (Keflex*) 500 Mg Capsule, 500 MG PO QID for 7 Days, CAP Prov:YVETTE ALANIZ PA-C 11/05/18 Acetaminophen* (Tylophen*) 500 Mg Capsule, 1 CAP PO Q6H PRN for PAIN AND OR ELEVATED TEMP, #20 CAP Prov:YVETTE ALANIZ PA-C 11/05/18 Albuterol Sulfate* (Ventolin HFA*) 18 Gm Hfa.aer.ad, 2 PUFF INHALATION Q4H, #1 INHALER Prov:MARIA ELENA CALVERT MD 10/10/18 Cephalexin* (Keflex*) 500 Mg Capsule, 500 MG PO QID for 5 Days, CAP Prov:MARIA ELENA CALVERT MD 10/10/18 Prednisone* (Prednisone*) 20 Mg Tab, 40 MG PO DAILY for 4 Days, TAB Start October 11, 2018 Prov:MARIA ELENA CALVERT MD 10/10/18 Phenylephrine/Diphenhydramine (DIMETAPP COLD & CONGEST LIQUID) 118 Ml Liquid, 10 ML PO Q4H PRN for COUGH, #4 OZ Prov:MARIA ELENA CALVERT MD 10/10/18 Celecoxib* (Celebrex*) 100 Mg Capsule, 100 MG PO BID, #30 CAP Prov:EDEN BARBOZA V. [employer] 08/21/18 Reported Medications Divalproex Sodium* (Depakote*) 500 Mg Tablet.dr, 500 MG PO BID, #120 TAB 08/18/18 Allergies Allergies: Coded Allergies: ibuprofen (Verified Allergy, Unknown, 08/18/18) PMhx/Soc Hx Neurological Disorder: Yes (SEIZURE DISORDER) Hx Cardiac Disorders: Yes (CP,HYPOTENSION) Hx Psychiatric Problems: Yes (DEPRESSION,ANXIETY) Hx Miscellaneous Medical Probl: Yes (DIZZINESS) Hx Alcohol Use: No Hx Substance Use: Yes (METH) Hx Tobacco Use: Yes FmHx Family History: No diabetes Physical Exam Vitals Vital Signs Date Temp Pulse Resp B/P (MAP) Pulse Ox O2 O2 Flow FiO2 Time Delivery Rate 11/13/18 97.3 89 18 138/84 100 11:49 (102) Physical Exam Const: No acute distress Head: Atraumatic Eyes: Normal Conjunctiva ENT: Normal External Ears, Nose and Mouth. Neck: Full range of motion. No meningismus. Resp: Clear to auscultation bilaterally Cardio: Regular rate and rhythm, no murmurs Abd: Soft, non tender, non distended. Normal bowel sounds Skin: No petechiae or rashes Back: No midline or flank tenderness Ext: Upper calf area with 2 x 2 cm area of induration, erythema and fluctuance. Neur: Awake and alert Psych: Normal Mood and Affect Results 24 hrs Current Medications Medications Dose Sig/Carolann Start Time Status Last (Trade) Ordered Route PRN Stop Time Admin Dose Reason Admin Lidocaine 10 ml ONCE STAT 11/13/18 DC HCl INJ 12:17 (Lidocaine 11/13/18 12:20 1% (Mdv) 10 ml) 650 mg ONCE STAT 11/13/18 DC 11/13/18 Acetaminophen PO 12:17 12:23 (Tylenol 11/13/18 12:20 Liquid) Procedures/MDM Vital signs stable. Differential diagnosis considered include but not limited to: Cellulitis, abscess, lipoma, neoplasm. Low suspicion for acute systemic infection. Physical examination and clinical presentation consistent most likely with skin abscess. During the ED course the patient remained stable, no new complaints. The patient received treatment with incision and drainage of the area presenting overall improvement of the symptoms. Incision and drainage: Informed consent obtained, risk and benefits discussed with patient. Indication: Skin abscess Location: Right lower extremity, upper calf Area cleaned and sterilized with chlorhexidine solution, 2 mL of lidocaine without epi was infiltrated in the area of the incision. 5 mm incision was made with 11 blade scalpel abscess was drained with breaking up loculation with a hemostat. 1/4 packing was placed through the incision in the abscess cavity. The patient tolerated well the procedure without complications. Results and clinical impression discussed with the patient who agrees with management. The patient is stable to be treated outpatient and will be discharged home, some side effects of prescribed medications (headache, rash, nausea, vomiting, diarrhea, drowsiness, habituation, bleeding, hypertension, interactions with other medications) were reviewed. The patient was instructed to follow up with the primary care provider in the n ext 48h. If symptoms persist, worsen or new symptoms develop, then patient should return to the ED immediately. Instructions explained and given directly by me to the patient with acknowledgment and demonstrated understanding. Disclaimer: Inadvertent spelling and grammatical errors are likely due to EHR/dictation software use and do not reflect on the overall quality of patient care. Also, please note that the electronic time recorded on this note does not necessarily reflect the actual time of the patient encounter. Departure Diagnosis: Primary Impression: Skin abscess Condition: Stable Patient Instructions: Abscess, Incision And Drainage Additional Instructions: Thank you very much for allowing us to participate in your care. Your health and safety is our top priority at [facility]. The evaluation in the emergency department has been done to rule out an acute emergency. Chronic, [id number] conditions may have not been evaluated; therefore, you need to follow up with a primary care provider in the next 48h. If symptoms persist, worsen or new symptoms develop, then patient should return to the ED immediately. Call your primary care doctor TOMORROW for an appointment during the next 2-4 days and bring all the information provided. Have prescriptions filled and follow precisely the directions on the label. If the symptoms get worse and your provider is unavailable, return to the Emergency Department immediately. MARIANA BUNCH MD Nov 13, 2018 12:21
[2018-11-13] MEDS ORDERED: SULF1TAB31 PO (13:07)
[2018-11-13] MEDS ORDERED: CEPH-443 PO (13:08)
[2018-11-13] MEDS ORDERED: ACET325T33 PO (13:09)
== END 2018-11-13 13:22 | disposition home or self-care (01) ==
LOC: FTE 11:24
DX: L02.415 Cutaneous abscess of right lower limb (principal); Z87.891 Personal history of nicotine dependence
CPT/HCPCS: 10060; Z7502; Z7610

== ENCOUNTER 2018-11-15 09:32 | Emergency (ER) | payer MEDICAID, OTHER ==
[~2018-11-15] VITALS: Ht 162.6 cm; Wt 97.0 kg
[~2018-11-15 09:32] MED LIST changes: +ACET325T33 PO
[2018-11-15 09:33] VITALS: BP 135/82; PULSE 117; RESP 24; Ht 162.6 cm; Wt 97.0 kg
--- NOTE | 2018-11-15 10:13 | ERD ---
ER Documentation Chief Complaint Chief Complaint wound check HPI This is a 43-year-old female with a history of IV drug abuse who presents to ED for wound check. Patient had an abscess on the right calf drained 2 days ago and had packing placed. Patient is here today to have packing removed and have a wound check. Admits to improvement in pain. Denies fevers, chills, increasing redness, increasing swelling, increasing warmth or worsening tenderness to palpation. States that she last used drugs 2 months ago. ROS All systems reviewed and are negative except as per history of present illness. Medications Home Meds Active Scripts Acetaminophen* (Tylenol*) 325 Mg Tablet, 2 TAB PO Q6 PRN for PAIN AND OR ELEVATED TEMP, #20 TAB Prov:MARIANA BUNCH MD 11/13/18 Cephalexin* (Keflex*) 500 Mg Capsule, 500 MG PO BID for 5 Days, CAP Prov:MARIANA BUNCH MD 11/13/18 Sulfamethoxazole/Trimethoprim* (Bactrim Ds* Tablet) 1 Each Tablet, 1 TAB PO BID, #14 TAB Prov:MARIANA BUNCH MD 11/13/18 Sulfamethoxazole/Trimethoprim* (Bactrim Ds* Tablet) 1 Each Tablet, 1 TAB PO BID, #14 TAB Prov:YVETTE ALANIZ PA-C 11/05/18 Cephalexin* (Keflex*) 500 Mg Capsule, 500 MG PO QID for 7 Days, CAP Prov:YVETTE ALANIZ PA-C 11/05/18 Acetaminophen* (Tylophen*) 500 Mg Capsule, 1 CAP PO Q6H PRN for PAIN AND OR ELEVATED TEMP, #20 CAP Prov:YVETTE ALANIZ PA-C 11/05/18 Albuterol Sulfate* (Ventolin HFA*) 18 Gm Hfa.aer.ad, 2 PUFF INHALATION Q4H, #1 INHALER Prov:MARIA ELENA CALVERT MD 10/10/18 Cephalexin* (Keflex*) 500 Mg Capsule, 500 MG PO QID for 5 Days, CAP Prov:MARIA ELENA CALVERT MD 10/10/18 Prednisone* (Prednisone*) 20 Mg Tab, 40 MG PO DAILY for 4 Days, TAB Start October 11, 2018 Prov:MARIA ELENA CALVERT MD 10/10/18 Phenylephrine/Diphenhydramine (DIMETAPP COLD & CONGEST LIQUID) 118 Ml Liquid, 10 ML PO Q4H PRN for COUGH, #4 OZ Prov:MARIA ELENA CALVERT MD 10/10/18 Celecoxib* (Celebrex*) 100 Mg Capsule, 100 MG PO BID, #30 CAP Prov:EDEN BARBOZA VTerence [employer] 08/21/18 Reported Medications Divalproex Sodium* (Depakote*) 500 Mg Tablet.dr, 500 MG PO BID, #120 TAB 08/18/18 Allergies Allergies: Coded Allergies: ibuprofen (Verified Allergy, Unknown, 08/18/18) PMhx/Soc Hx Neurological Disorder: Yes (SEIZURE DISORDER) Hx Cardiac Disorders: Yes (CP,HYPOTENSION) Hx Psychiatric Problems: Yes (DEPRESSION,ANXIETY) Hx Miscellaneous Medical Probl: Yes (DIZZINESS) Hx Alcohol Use: No Hx Substance Use: Yes (METH) Hx Tobacco Use: Yes Smoking Status: Never smoker FmHx Family History: No diabetes Physical Exam Vitals Vital Signs Date Temp Pulse Resp B/P (MAP) Pulse Ox O2 O2 Flow FiO2 Time Delivery Rate 11/15/18 98.4 117 24 135/82 99 09:33 (99) Physical Exam Const: No acute distress Head: Atraumatic Eyes: Normal Conjunctiva ENT: Normal External Ears, Nose and Mouth. Respiratory: No respiratory distress Skin: There is a abscess on patient's right upper calf with packing in place, there is no surrounding redness, warmth or tenderness to palpation, no purulent drainage noted, no lymphatic streaking Back: No midline or flank tenderness Ext: No cyanosis, or edema Neur: Awake and alert Psych: Normal Mood and Affect Procedures/MDM ER COURSE: The patient was stable throughout ED course. I kept the patient and/or family informed of laboratory and diagnostic imaging results throughout the emergency room course. The patient was promptly evaluated and a treatment plan was devised based on H&P and other data. This plan was discussed with the patient who agreed and had no further questions or concerns prior to discharge. MEDICAL DECISION MAKIN-year-old female presents to ED for wound check. Patient had an abscess drained on the right upper calf 2 days ago and had packing placed. Packing was removed from wound by myself and repacked with 1/4 inch iodoform packing. Patient was advised to return to the ER in 2 days to have packing removed and have wound rechecked. wound appears to be healing well. There is no lymphatic streaking. Low suspicion for sepsis, deep space infection, compartment syndrome, cellulitis, neurovascular injury, tendon injury. Patient's vitals are stable and pt can be managed with close outpatient follow-up. Advised patient follow-up with primary care or come to the ER in the next 48 hours for wound check. Advised to return to ED with any worsening symptoms. DISPOSITION PLAN: We discussed follow up with the patient's primary care doctor within 24 to 48 hours. Patient counseled regarding my diagnostic impression and care plan. Prior to discharge all questions answered. Pt agrees with treatment plan and understands strict return precautions. Precautionary instructions provided including instructions to return to the ER if not improving or for any worsening or changing symptoms or concerns. SPECIALIST FOLLOW UP RECOMMENDED: None Patient has been advised to follow up with primary care in 1-2 days. Disclaimer: Inadvertent spelling and grammatical errors are likely due to EHR/dictation software use and do not reflect on the overall quality of patient care. Also, please note that the electronic time recorded on this note does not necessarily reflect the actual time of the patient encounter. Departure Diagnosis: Primary Impression: Encounter for wound re-check Condition: Stable Patient Instructions: Wound Packing Referrals: [facility] YOU HAVE RECEIVED A MEDICAL SCREENING EXAM AND THE RESULTS INDICATE THAT YOU DO NOT HAVE A CONDITION THAT REQUIRES URGENT TREATMENT IN THE EMERGENCY DEPARTMENT. FURTHER EVALUATION AND TREATMENT OF YOUR CONDITION CAN WAIT UNTIL YOU ARE SEEN IN YOUR DOCTORS OFFICE WITHIN THE NEXT 1-2 DAYS. IT IS YOUR RESPONSIBILITY TO MAKE AN APPOINTMENT FOR FOLOW-UP CARE. IF YOU HAVE A PRIMARY DOCTOR --you should call your primary doctor and schedule an appointment IF YOU DO NOT HAVE A PRIMARY DOCTOR YOU CAN CALL OUR PHYSICIAN REFERRAL HOTLINE AT IF YOU CAN NOT AFFORD TO SEE A PHYSICIAN YOU CAN CHOSE FROM THE FOLLOWING [facility] [address] [facility] [address] [facility]. [facility] [address] [facility] [address] [facility] [address] [facility]. [facility] [address] Additional Instructions: Return in 2 days for wound check. You he will need to have your wound packing removed and possibly have wound repacked. Patient advised to return to the ED immediately for new or worsening symptoms. Patient advised to follow up with primary care provider in the next 24-48 hours. Patient verbalized understanding and agrees with treatment plan and course of action. If patient has no primary care they may follow up with one of the critical access hospital clinics listed on the following page or one of the options listed below [facility] [address] [place] [id number] or [facility] [address] [place] [address] or [facility] [address] [place] [address] YVETTE ALANIZ PA-C Nov 15, 2018 10:13
== END 2018-11-15 10:45 | disposition left against medical advice (07) ==
LOC: FTE 09:32
DX: Z48.01 Encounter for change or removal of surgical wound dressing (principal)
CPT/HCPCS: 99281

== ENCOUNTER 2018-11-17 21:06 | Emergency (ER) | payer MEDICAID ==
[~2018-11-17] VITALS: Ht 162.6 cm; Wt 97.0 kg
[2018-11-17 21:08] VITALS: BP 146/86; PULSE 113; RESP 20; Ht 162.6 cm; Wt 97.0 kg
--- NOTE | 2018-11-17 23:04 | ERD ---
ER Documentation Chief Complaint Chief Complaint here for wound check/re packing of abscess to R calf HPI 43-year-old female presents to have evaluation for an abscess to the right calf. The patient is status post several days of incision and drainage with packing. She denies any redness drainage or discharge. Patient does describe some itching around the dressing site. No fevers or chills. She is currently taking antibiotics. No other issues currently. ROS All systems reviewed and are negative except as per history of present illness. Medications Home Meds Active Scripts Acetaminophen* (Tylenol*) 325 Mg Tablet, 2 TAB PO Q6 PRN for PAIN AND OR ELEVATED TEMP, #20 TAB Prov:MARIANA BUNCH MD 11/13/18 Cephalexin* (Keflex*) 500 Mg Capsule, 500 MG PO BID for 5 Days, CAP Prov:MARIANA BUNCH MD 11/13/18 Sulfamethoxazole/Trimethoprim* (Bactrim Ds* Tablet) 1 Each Tablet, 1 TAB PO BID, #14 TAB Prov:MARIANA BUNCH MD 11/13/18 Sulfamethoxazole/Trimethoprim* (Bactrim Ds* Tablet) 1 Each Tablet, 1 TAB PO BID, #14 TAB Prov:YVETTE ALANIZ PA-C 11/05/18 Cephalexin* (Keflex*) 500 Mg Capsule, 500 MG PO QID for 7 Days, CAP Prov:YVETTE ALANIZ PA-C 11/05/18 Acetaminophen* (Tylophen*) 500 Mg Capsule, 1 CAP PO Q6H PRN for PAIN AND OR ELEVATED TEMP, #20 CAP Prov:YVETTE ALANIZ PA-C 11/05/18 Albuterol Sulfate* (Ventolin HFA*) 18 Gm Hfa.aer.ad, 2 PUFF INHALATION Q4H, #1 INHALER Prov:MARIA ELENA CALVERT MD 10/10/18 Cephalexin* (Keflex*) 500 Mg Capsule, 500 MG PO QID for 5 Days, CAP Prov:MARIA ELENA CALVERT MD 10/10/18 Prednisone* (Prednisone*) 20 Mg Tab, 40 MG PO DAILY for 4 Days, TAB Start October 11, 2018 Prov:MARIA ELENA CALVERT MD 10/10/18 Phenylephrine/Diphenhydramine (DIMETAPP COLD & CONGEST LIQUID) 118 Ml Liquid, 10 ML PO Q4H PRN for COUGH, #4 OZ Prov:MARIA ELENA CALVERT MD 10/10/18 Celecoxib* (Celebrex*) 100 Mg Capsule, 100 MG PO BID, #30 CAP Prov:EDEN BARBOZA NP 08/21/18 Reported Medications Divalproex Sodium* (Depakote*) 500 Mg Tablet.dr, 500 MG PO BID, #120 TAB 08/18/18 Allergies Allergies: Coded Allergies: ibuprofen (Verified Allergy, Unknown, 08/18/18) PMhx/Soc Hx Neurological Disorder: Yes (SEIZURE DISORDER) Hx Cardiac Disorders: Yes (CP,HYPOTENSION) Hx Psychiatric Problems: Yes (DEPRESSION,ANXIETY) Hx Miscellaneous Medical Probl: Yes (DIZZINESS) Hx Alcohol Use: No Hx Substance Use: Yes (METH) Hx Tobacco Use: Yes Smoking Status: Never smoker FmHx Family History: No diabetes Physical Exam Vitals Vital Signs Date Temp Pulse Resp B/P (MAP) Pulse Ox O2 O2 Flow FiO2 Time Delivery Rate 11/17/18 97.9 113 20 146/86 99 21:08 (106) Physical Exam General: Well developed, well nourished, no acute distress Head: Normocephalic, atraumatic. Eyes: EOM intact ENT: Moist mucous membranes Neck: Full ROM Respiratory: No respiratory distress Cardiovascular: Well perfused distally Abdominal: Nondistended : Deferred MSK: No edema, no unilateral swelling, 5/5 strength Neurologic: Alert and oriented, moving all extremities, normal speech, steady gait Skin: No rash, right calf wound and abscess is well-healing, no significant drainage is noted. No erythema warmth or tenderness. Mild induration is pre sent but no fluctuance. No lymphangitic streaking. Soft tissues. Psych: Normal mood Procedures/MDM The patient's wound is extremely well-appearing here in the emergency room. There are no signs or symptoms concerning for complication such as wound dehiscence, wound infection, cellulitis, or deep space infection. I discussed routine wound care as well as scar minimization techniques. The patient is safe for discharge with outpatient primary care follow-up as needed. Departure Diagnosis: Primary Impression: Encounter for wound re-check Condition: Good Patient Instructions: Wound Care Referrals: COMMUNITY CLINICS YOU HAVE RECEIVED A MEDICAL SCREENING EXAM AND THE RESULTS INDICATE THAT YOU DO NOT HAVE A CONDITION THAT REQUIRES URGENT TREATMENT IN THE EMERGENCY DEPARTMENT. FURTHER EVALUATION AND TREATMENT OF YOUR CONDITION CAN WAIT UNTIL YOU ARE SEEN IN YOUR DOCTORS OFFICE WITHIN THE NEXT 1-2 DAYS. IT IS YOUR RESPONSIBILITY TO MAKE AN APPOINTMENT FOR FOLOW-UP CARE. IF YOU HAVE A PRIMARY DOCTOR --you should call your primary doctor and schedule an appointment IF YOU DO NOT HAVE A PRIMARY DOCTOR YOU CAN CALL OUR PHYSICIAN REFERRAL HOTLINE AT IF YOU CAN NOT AFFORD TO SEE A PHYSICIAN YOU CAN CHOSE FROM THE FOLLOWING [facility] [address] [facility]. [facility] [address] [facility] [facility] [address] [facility] [facility] [address] [facility] [facility] [address] [facility]. [facility] [address] [facility]. [facility] YOU HAVE RECEIVED A MEDICAL SCREENING EXAM AND THE RESULTS INDICATE THAT YOU DO NOT HAVE A CONDITION THAT REQUIRES URGENT TREATMENT IN THE EMERGENCY DEPARTMENT. FURTHER EVALUATION AND TREATMENT OF YOUR CONDITION CAN WAIT UNTIL YOU ARE SEEN IN YOUR DOCTORS OFFICE WITHIN THE NEXT 1-2 DAYS. IT IS YOUR RESPONSIBILITY TO MAKE AN APPOINTMENT FOR FOLOW-UP CARE. IF YOU HAVE A PRIMARY DOCTOR --you should call your primary doctor and schedule and appointment IF YOU DO NOT HAVE A PRIMARY DOCTOR YOU CAN CALL OUR PHYSICIAN REFERRAL HOTLINE AT . IF YOU CAN NOT AFFORD TO SEE A PHYSICIAN YOU CAN CHOSE FROM THE FOLLOWING [facility] INSTITUTIONS: [facility] [address] [place] [address] [facility] [address] [place] [address] [facility] + [facility] [address] [place] [address] Additional Instructions: Call your primary care doctor TOMORROW for an appointment during the next 1 WEEK.Tell the test data developer that you were referred from this facility.See the doctor sooner or return here if your condition worsens before your appointment time. LIDIA HOBBS MD Nov 17, 2018 23:04
== END 2018-11-17 23:04 | disposition home or self-care (01) ==
LOC: E/R 21:06
DX: Z48.01 Encounter for change or removal of surgical wound dressing (principal); Z87.891 Personal history of nicotine dependence
CPT/HCPCS: 99281

== ENCOUNTER 2019-01-13 03:04 | Emergency (ER) | payer MEDICAID ==
[~2019-01-13] VITALS: Ht 158.8 cm; Wt 97.5 kg
[2019-01-13 03:25] VITALS: Ht 158.8 cm; Wt 97.5 kg
[2019-01-13] MEDS ORDERED: DIPHTH/TET/ACEL PERTUSS (ADULT) 0.5 ML VIAL IM* ONE (06:30)
[2019-01-13 07:59] VITALS: BP 125/62; PULSE 86; RESP 20
== END 2019-01-13 08:00 | disposition home or self-care (01) ==
LOC: FTE 03:04
DX: L02.414 Cutaneous abscess of left upper limb (principal); F17.210 Nicotine dependence, cigarettes, uncomplicated; I10 Essential (primary) hypertension; Z23 Encounter for immunization
CPT/HCPCS: 90471; 90715

== ENCOUNTER 2019-01-14 20:50 | Emergency (ER) | payer MEDICAID ==
[~2019-01-14] VITALS: Ht 157.5 cm; Wt 96.7 kg
[2019-01-14 21:05] VITALS: BP 141/85; PULSE 96; RESP 18; Ht 157.5 cm; Wt 96.7 kg
--- NOTE | 2019-01-14 21:32 | ERD ---
ER Documentation Chief Complaint Chief Complaint Dressing came off, Left forearm wound recheck HPI Patient is here for 2-day wound check on an abscess that was drained on her left forearm. She is right-hand dominant. She is concerned because the dressing accidentally fell off today so she would like to have it redressed. Still has some burning pain there. No fever. No bleeding or drainage. ROS All systems reviewed and are negative except as per history of present illness. Medications Home Meds Active Scripts Cephalexin* (Keflex*) 500 Mg Capsule, 500 MG PO QID for 5 Days, CAP Prov:PEACE SANTOS PA-C 01/13/19 Sulfamethoxazole/Trimethoprim* (Bactrim Ds* Tablet) 1 Each Tablet, 1 TAB PO BID, #14 TAB Prov:PEACE SANTOS-C 01/13/19 Acetaminophen* (Tylenol*) 325 Mg Tablet, 2 TAB PO Q6 PRN for PAIN AND OR ELEVATED TEMP, #20 TAB Prov:MARIANA BUNCH MD 11/13/18 Cephalexin* (Keflex*) 500 Mg Capsule, 500 MG PO BID for 5 Days, CAP Prov:MARIANA BUNCH MD 11/13/18 Sulfamethoxazole/Trimethoprim* (Bactrim Ds* Tablet) 1 Each Tablet, 1 TAB PO BID, #14 TAB Prov:MARIANA BUNCH MD 11/13/18 Sulfamethoxazole/Trimethoprim* (Bactrim Ds* Tablet) 1 Each Tablet, 1 TAB PO BID, #14 TAB Prov:YVETTE ALANIZ PA-C 11/05/18 Cephalexin* (Keflex*) 500 Mg Capsule, 500 MG PO QID for 7 Days, CAP Prov:YVETTE ALANIZ PA-C 11/05/18 Acetaminophen* (Tylophen*) 500 Mg Capsule, 1 CAP PO Q6H PRN for PAIN AND OR ELEVATED TEMP, #20 CAP Prov:YVETTE ALANIZ PA-C 11/05/18 Albuterol Sulfate* (Ventolin HFA*) 18 Gm Hfa.aer.ad, 2 PUFF INHALATION Q4H, #1 INHALER Prov:MARIA ELENA CALVERT MD 10/10/18 Cephalexin* (Keflex*) 500 Mg Capsule, 500 MG PO QID for 5 Days, CAP Prov:MARIA ELENA CALVERT MD 10/10/18 Prednisone* (Prednisone*) 20 Mg Tab, 40 MG PO DAILY for 4 Days, TAB Start October 11, 2018 Prov:MARIA ELENA CALVERT MD 10/10/18 Phenylephrine/Diphenhydramine (DIMETAPP COLD & CONGEST LIQUID) 118 Ml Liquid, 10 ML PO Q4H PRN for COUGH, #4 OZ Prov:MARIA ELENA CALVERT MD 10/10/18 Celecoxib* (Celebrex*) 100 Mg Capsule, 100 MG PO BID, #30 CAP Prov:EDEN BARBOZA V. [employer] 08/21/18 Reported Medications Divalproex Sodium* (Depakote*) 500 Mg Tablet.dr, 500 MG PO BID, #120 TAB 08/18/18 Allergies Allergies: Coded Allergies: ibuprofen (Verified Allergy, Unknown, 08/18/18) PMhx/Soc Hx Neurological Disorder: Yes (SEIZURE DISORDER) Hx Cardiac Disorders: Yes (CP,HYPOTENSION) Hx Psychiatric Problems: Yes (DEPRESSION,ANXIETY) Hx Miscellaneous Medical Probl: Yes (DIZZINESS) Hx Alcohol Use: No Hx Substance Use: Yes (METH) Hx Tobacco Use: Yes Smoking Status: Current every day smoker FmHx Family History: No diabetes Physical Exam Vitals Vital Signs Date Temp Pulse Resp B/P (MAP) Pulse Ox O2 O2 Flow FiO2 Time Delivery Rate 01/14/19 98.4 96 18 141/85 100 21:05 (103) Physical Exam Const: No acute distress Head: Atraumatic Eyes: Normal Conjunctiva ENT: Normal External Ears, Nose and Mouth. Neck: Full range of motion. No meningismus. Resp: Clear to auscultation bilaterally Cardio: Regular rate and rhythm, no murmurs Skin: Healing abscess on left forearm, packing removed, no significant erythema, no bleeding or drainage Procedures/MDM Wound is healing appropriately. Packing removed. It was redressed. Continue taking medications as prescribed. Patient counseled regarding my diagnostic impression and care plan. Prior to discharge all questions answered. Pt agrees with treatment plan and understands strict return precautions. Pt is instructed to follow up with primary care provider within 24-48 hours. Precautionary instructions provided including instructions to return to the ER if not improving or for any worsening or changing symptoms or concerns. Departure Diagnosis: Primary Impression: Encounter for wound re-check Condition: Stable Patient Instructions: Wound Care Additional Instructions: Call your primary care doctor TOMORROW for an appointment during the next 1-2 days.See the doctor sooner or return here if your condition worsens before your appointment time. BJ MUSA PA-C Jan 14, 2019 21:32
== END 2019-01-14 22:16 | disposition home or self-care (01) ==
LOC: FTE 20:50
DX: Z48.01 Encounter for change or removal of surgical wound dressing (principal); F17.210 Nicotine dependence, cigarettes, uncomplicated
CPT/HCPCS: 99281